=== PATIENT | female | born 1965 | race Caucasian/White ===

== ENCOUNTER → 2020-09-26 13:50 | Outpatient (BNVA) | payer BC, OTHER, SELFPAY | PROVIDERS: Family Provider Family Medicine; PCP Family Medicine; Visit Provider Family Medicine | DX: R10.11 Right upper quadrant pain (principal); F32.9 Major depressive disorder, single episode, unspecified; K21.9 Gastro-esophageal reflux disease without esophagitis; Z12.11 Encounter for screening for malignant neoplasm of colon; R53.83 Other fatigue | CPT/HCPCS: 80053; 80061; 82607; 82652; 83690; 84443; 85025 ==

== ENCOUNTER → 2021-04-14 11:23 | Outpatient (BNVA) | payer OTHER, SELFPAY | PROVIDERS: Family Provider Family Medicine; PCP Family Medicine; Visit Provider Family Medicine | DX: Z78.0 Asymptomatic menopausal state (principal); Z11.3 Encounter for screening for infections with a predominantly sexual mode of transmission; Z72.51 High risk heterosexual behavior; Z87.898 Personal history of other specified conditions; G47.00 Insomnia, unspecified; Z20.2 Contact with and (suspected) exposure to infections with a predominantly sexual mode of transmission; Z12.4 Encounter for screening for malignant neoplasm of cervix; E87.5 Hyperkalemia; Z12.39 Encounter for other screening for malignant neoplasm of breast; Z01.419 Encounter for gynecological examination (general) (routine) without abnormal findings; F51.01 Primary insomnia; Z12.11 Encounter for screening for malignant neoplasm of colon; M72.2 Plantar fascial fibromatosis | CPT/HCPCS: 80048; 86592; 86705; 86706; 86803; 87340; 87491; 87591; 87624; 87661; 87806 ==